=== PATIENT | male | born 1980 | race Two or more races ===

== ENCOUNTER → 2016-11-06 | Outpatient (REF) | payer OTHER ==
[~2016-11-06] MED LIST: NORC5TAB PO
[2016-11-06 13:10] LABS: CARCINOEMBRYONIC ANTIGEN 1.4 NG/ML (<2.5)
== END ==
LOC: M LAB REF 12:01
PROVIDERS: ATTEND Internal Medicine Medical Oncology
DX: C62.90 Malignant neoplasm of unspecified testis, unspecified whether descended or undescended (principal)

== ENCOUNTER → 2016-12-21 | Outpatient (REF) | payer OTHER | LOC: M LAB REF 12:23 | PROVIDERS: ATTEND Internal Medicine Medical Oncology | DX: C62.91 Malignant neoplasm of right testis, unspecified whether descended or undescended (principal); Z08 Encounter for follow-up examination after completed treatment for malignant neoplasm ==

== ENCOUNTER 2017-02-16 06:13 | Emergency (ER) | payer OTHER ==
[~2017-02-16] VITALS: Ht 177.8 cm; Wt 104.3 kg
[~2017-02-16 06:13] MED LIST changes: +NORC1TAB4 PO; -NORC5TAB PO
[2017-02-16 06:18] VITALS: BP 123/74
[2017-02-16] MEDS ORDERED: MAGICMW MT (06:53)
[2017-02-16] MEDS ORDERED: TESS100C PO (06:53)
== END 2017-02-16 07:04 | disposition home or self-care (01) ==
LOC: M ED 07:03
DX: R05 Cough (principal); J02.9 Acute pharyngitis, unspecified

== ENCOUNTER 2017-03-01 22:05 | Emergency (ER) | payer OTHER ==
[~2017-03-01] VITALS: Ht 177.8 cm; Wt 104.3 kg
[~2017-03-01 22:05] MED LIST changes: -GASTROGRAFIN SOLUTION 30ML (Q9963) As Ordered ONE; -IBUP-1114 PO; -ISOVUE-370 76% 100ML VIAL (Q9967) As Ordered ONE
[2017-03-01 22:10] VITALS: BP 139/81
[2017-03-01] MEDS ORDERED: IBUP-1114 PO (22:15)
[2017-03-01] MEDS ORDERED: KETOROLAC 60 MG/2 ML VIAL (J1885) IM ONE (22:30)
[2017-03-01] MEDS ORDERED: NORCO 5/325MG TABLET (BULK FOR ED) PO ONE (23:00)
== END 2017-03-01 23:24 | disposition home or self-care (01) ==
LOC: M ED 22:43
DX: M79.604 Pain in right leg (principal); M79.605 Pain in left leg

== ENCOUNTER → 2017-03-01 | Outpatient (CLI) | payer OTHER ==
[~2017-03-01] MED LIST changes: +GASTROGRAFIN SOLUTION 30ML (Q9963) As Ordered ONE; +IBUP-1114 PO; +ISOVUE-370 76% 100ML VIAL (Q9967) As Ordered ONE; +MAGICMW MT; +TESS100C PO
--- NOTE | 2017-03-01 18:40 | REP ---
Clinical: Testicular cancer . Comparison: 02/05/2016 . Technique: PA and lateral. Findings: The mediastinum and cardiac silhouette are normal. Xddkwu-U-Myrx with tip in the SVC. The lung streeter are clear and without acute consolidation, effusion, or pneumothorax. The skeletal structures are intact and normal. Impression: 1. No acute cardiopulmonary process. Signed by August Nice MD 03/01/2017 06:31 P
--- NOTE | 2017-03-02 09:00 | REP ---
Clinical: Testicular cancer for restaging. Technique: Axial contrast enhanced images from the lung bases to the pubic symphysis using oral and 100 ml Isovue 370 intravenous contrast material with precontrast and delayed images of the abdomen as well as coronal and sagittal re-formations. Comparison: 08/10/2016, 06/25/2016. Findings: Lung bases are clear. Visualized heart and pericardium normal. Liver, spleen, pancreas, gallbladder, bilateral adrenal glands and kidneys are normal. The enteric system including stomach, small and large bowel is unremarkable and without obstruction or acute inflammatory process. Normal terminal ileum and appendix identified in the right lower quadrant. Scattered sigmoid diverticula noted without acute diverticulitis. Pelvis demonstrates partially collapsed normal bladder and age appropriate prostate/seminal vesicles. No ascites. No adenopathy. No free air. Abdominal aorta and vasculature normal. Musculoskeletal structures are intact without focal osseous abnormality. Impression: 1. No evidence for ascites, adenopathy, mass, recurrence or metastatic disease. 2. Sigmoid diverticula without acute diverticulitis. Signed by August Nice MD 03/02/2017 08:52 A
== END ==
LOC: M RAD 17:17
PROVIDERS: ATTEND Internal Medicine Medical Oncology
DX: C62.92 Malignant neoplasm of left testis, unspecified whether descended or undescended (principal)

== ENCOUNTER → 2017-03-13 | Outpatient (REF) | payer OTHER ==
[~2017-03-13] MED LIST changes: +IBUP-1114 PO
[2017-03-15 10:44] LABS: CARCINOEMBRYONIC ANTIGEN < 0.5 NG/ML (<2.5)
== END ==
LOC: M LAB REF 13:16
PROVIDERS: ATTEND Internal Medicine Medical Oncology
DX: C62.91 Malignant neoplasm of right testis, unspecified whether descended or undescended (principal)

== ENCOUNTER → 2017-04-01 | Outpatient (CLI) | payer OTHER ==
[~2017-04-01] MED LIST changes: +LIDOCAINE 2% MDV 20 ML VIAL As Ordered ONE; +LIDOCAINE W/EPINEPHRINE 1% 20ML VIAL As Ordered ONE
--- NOTE | 2017-04-01 17:51 | REPKIM ---
CLINICAL HISTORY: Patient has a right IJ chest phhkaf-a-mogh. The referring service has requested to remove the chest xdvliw-t-buaj because it is no longer needed. PROCEDURE PERFORMED: Chest Qkbkiu-A-Ucyg Removal INTERVENTIONALIST: Reyes Villar MD MEDICATIONS: Local Lidocaine EBL: less than 5 mL CONSENT: The risks, benefits and alternatives to the procedure were explained to the patient and informed written consent was obtained. PROCEDURE/FINDINGS: The patient was brought to the interventional radiology suite and was positioned supine on the table. Time out procedure was performed. Fluoroscopy of the chest showed the right chest ocoegk-a-euom is intact with its tip in a satisfactory course and position. The right upper chest was prepped and draped in the usual sterile fashion. Local anesthesia was administered to the overlying skin and surrounding deep tissue around the existing port. Then a skin incision was made. The port was bluntly dissected free from the surrounding soft tissues. Then the port and its associated catheter were removed in their entirety. The deep tissue was closed with interrupted 2-0 Vicryl suture. The skin incision closed with running subcutaneous 4-0 Vicryl suture and steristrips. The patient tolerated the procedure well with no immediate complications. This procedure was performed using fluoroscopy. Dr. Villar was present. IMPRESSION: Successful chest hxbqhr-k-mrnr removal as discussed above. cc: MD MICHI Leon
== END | disposition home or self-care (01) ==
LOC: M IRPRO 07:34
PROVIDERS: ATTEND Internal Medicine Medical Oncology
DX: Z45.2 Encounter for adjustment and management of vascular access device (principal); C62.90 Malignant neoplasm of unspecified testis, unspecified whether descended or undescended

== ENCOUNTER → 2017-04-12 | Outpatient (REF) | payer OTHER ==
[~2017-04-12] MED LIST changes: -LIDOCAINE 2% MDV 20 ML VIAL As Ordered ONE; -LIDOCAINE W/EPINEPHRINE 1% 20ML VIAL As Ordered ONE
[2017-04-12 13:46] LABS: CARCINOEMBRYONIC ANTIGEN 0.6 NG/ML (<2.5)
== END ==
LOC: M ONCM 12:23
PROVIDERS: ATTEND Internal Medicine Medical Oncology
DX: C62.90 Malignant neoplasm of unspecified testis, unspecified whether descended or undescended (principal)

== ENCOUNTER → 2017-05-10 | Outpatient (REF) | payer OTHER ==
[2017-05-10 14:06] LABS: CARCINOEMBRYONIC ANTIGEN < 0.5 NG/ML (<2.5)
== END ==
LOC: M LAB REF 13:23
PROVIDERS: ATTEND Internal Medicine Medical Oncology
DX: C62.90 Malignant neoplasm of unspecified testis, unspecified whether descended or undescended (principal)

== ENCOUNTER → 2017-08-16 | Outpatient (CLI) | payer OTHER ==
[~2017-08-16] MED LIST changes: +GASTROGRAFIN SOLUTION 30ML (Q9963) As Ordered ONE; +ISOVUE-300 61% 50ML VIAL (Q9967) As Ordered ONE; +ISOVUE-370 76% 100ML VIAL (Q9967) As Ordered ONE
--- NOTE | 2017-08-16 16:07 | REP ---
CHEST X-RAY PA AND LATERAL: 08/16/2017. Comparison: 03/01/2017, 02/05/2016, CT chest 02/22/2016. Clinical history: Follow-up testicular carcinoma, surveillance. Findings: Two views of the chest were provided. The lung streeter are well inflated. There is been interval removal of the indwelling jugular port catheter since the February 2017 exam. There is no pleural effusion, lateral pleural thickening apical scarring or pneumothorax. No infiltrate, mass, nodule or atelectasis. Heart, mediastinal and hilar contours are normal. The aorta and airway were intact. Bony thorax shows no focal lesion. No free air under the diaphragm. Impression: 1. No acute cardiopulmonary change. Interval removal of the right jugular indwelling catheter. No visible plain radiographic evidence of metastatic disease in the chest. Signed by Lionel Lopez MD 08/16/2017 04:00 P
--- NOTE | 2017-08-16 18:06 | REP ---
CT ABDOMEN PELVIS WITHOUT AND WITH CONTRAST: 08/16/2017. Comparison: 03/01/2017, 08/10/2016. Clinical history: Follow-up testicular cancer for restaging. Technique: Oral Gastrografin mixture 10 ml in 290 ml flavored water for two doses per our bowel contrast protocol and scanning through the abdomen and pelvis. Coronal and sagittal reconstructions were provided. Precontrast images were also obtained. Findings: CT abdomen: The lung bases are clear. The heart is not enlarged. There is no pericardial thickening or effusion and no hiatal hernia. No hepatosplenomegaly, focal hepatic or splenic lesion, intrahepatic biliary dilatation nor perihepatic ascites. Gallbladder, adrenal glands and pancreas are all unremarkable. The aorta is without aneurysm. There is no periaortic, other retroperitoneal or intra-abdominal pathologic sized lymphadenopathy. The largest node is about 7.5 mm on image 80 and this is unchanged compared to previous studies. Small bowel loops are contrast-filled. Oral contrast reaches the right colon and transverse colon. No sign of colitis, diverticulitis, stricture or mass. No ascites or free air. Bone windows show lumbar and lower thoracic spine without compression deformity of destructive lesion. Posterior elements were all intact. Visualized ribs intact. CT pelvis: Sacrum, SI joints, hips, pelvis and pubic symphysis and pubic rami were all grossly intact. No destructive lesions. Kidneys show function without obstruction, stone, mass, cyst or perinephric fluid. There is a tiny calcification within pyramids without collecting system stone on that left side is about 2 mm. No hydronephrosis, hydroureter or ureteral stone on either side. No bladder stone or mass. No wall thickening of the bladder. Prostate unremarkable. The distal left colon shows a few scattered diverticula as does the proximal sigmoid but no colitis or diverticulitis. I see no evidence of ventral or inguinal hernia nor pathologic sized inguinal adenopathy. Impression: 1. There are stable small retroperitoneal nodes which I would regard as normal. No progression in size or number of nodes. 2. No calcified gallstone. The liver, spleen, adrenal glands, pancreas and kidneys are intact. 3. Small bowel loops and colon intact. The bones without acute finding. No CT evidence for metastatic disease at this time. Signed by Lionel Lopez MD 08/19/2017 12:47 P
== END ==
LOC: M RAD 15:04
PROVIDERS: ATTEND Internal Medicine Medical Oncology
DX: C62.90 Malignant neoplasm of unspecified testis, unspecified whether descended or undescended (principal)
CPT/HCPCS: 71020; 74178; Q9963; Q9967

== ENCOUNTER → 2018-01-28 | Outpatient (REF) | payer OTHER ==
[2018-01-28 14:32] LABS: ALPHA FETOPROTEIN TUMOR QUANT 1.9 NG/ML (<8.1)
[2018-01-29 08:06] LABS: HCG SERUM TUMOR MARKER QUANT < 1 mIU/mL (0-3)
== END ==
LOC: M LAB REF 13:39
DX: C62.91 Malignant neoplasm of right testis, unspecified whether descended or undescended (principal)

== ENCOUNTER → 2018-01-30 | Outpatient (CLI) | payer OTHER | LOC: M RAD 08:48 | DX: C62.90 Malignant neoplasm of unspecified testis, unspecified whether descended or undescended (principal) | CPT/HCPCS: 71046 ==

== ENCOUNTER → 2018-04-22 | Outpatient (REF) | payer OTHER ==
[2018-04-24 00:20] LABS: HCG SERUM TUMOR MARKER QUANT < 1 mIU/mL (0-3)
[2018-04-25 10:05] LABS: ALPHA FETOPROTEIN TUMOR QUANT < 1.3 NG/ML (<8.1)
== END ==
LOC: M LAB REF 13:35
DX: C62.91 Malignant neoplasm of right testis, unspecified whether descended or undescended (principal)

== ENCOUNTER 2018-05-21 13:17 | Emergency (ER) | payer SELFPAY, OTHER | END 2018-05-21 15:23 | disposition left against medical advice (07) | LOC: M ED 13:17 | DX: R05 Cough (principal); I45.19 Other right bundle-branch block; Z53.21 Procedure and treatment not carried out due to patient leaving prior to being seen by health care provider ==

== ENCOUNTER 2018-06-01 18:04 | Emergency (ER) | payer OTHER ==
[2018-06-01] MEDS: KETOROLAC 30 MG/ML VIAL (J1885) IV (18:30)
[2018-06-01] MEDS: ONDANSETRON 4MG/2ML VIAL (J2405) IV (18:30)
[2018-06-01] MEDS: NS 1,000 ML IV (18:30)
[2018-06-01 18:33] LABS: BASO % 0.4 % (0.0-1.0); EOS # 0.3 10^3/uL (0.0-0.50); EOS % 2.7 % (0.0-3.0); HEMATOCRIT 46.8 % (42.0-52.0); IMMATURE GRANULOCYTE % 0.4 % (0-3.0); LYMPH # 2.2 10^3/uL (1.5-4.5); LYMPH % 21.4 % (24.0-44.0); MEAN CORPUSCULAR HEMOGLOBIN 27.2 pg (27.0-33.0); MEAN CORPUSCULAR HGB CONC 34.2 g/dl (32.0-36.5); MEAN CORPUSCULAR VOLUME 79.6 fl (80.0-96.0); MONO # 0.7 10^3/uL (0.0-0.8); MONO % 7.1 % (0.0-5.0); NEUTROPHILS # 7.1 10^3/uL (1.8-7.7); PLATELET COUNT, AUTOMATED 289 10^3/uL (150-450); RED BLOOD COUNT 5.88 10^6/uL (4.30-6.10); RED CELL DISTRIBUTION WIDTH 13.7 % (11.5-14.5); WHITE BLOOD COUNT 10.5 10^3/uL (4.0-10.0)
[2018-06-01 18:44] LABS: KETONE, URINE AUTO RFX NEGATIVE (NEGATIVE); LEUKOCYTE ESTERASE UR AUTO RFX NEGATIVE (NEGATIVE); MUCUS, URINE RFX SMALL (NEGATIVE); NITRITE, URINE AUTO RFX NEGATIVE (NEGATIVE); RBC, URINE AUTO RFX 1 /HPF (0-3); SPECIFIC GRAVITY UR AUTO RFX 1.025 (1.002-1.035); SQUAM EPITHELIAL CELL UR AURFX 0 /HPF (0-6); WBC, URINE AUTO RFX 1 /HPF (0-3)
[2018-06-01 18:58] LABS: ALBUMIN/GLOBULIN RATIO 1.21 (1.00-1.93); ALKALINE PHOSPHATASE 124 U/L (45-117); ALT/SGPT 41 U/L (12-78); ANION GAP 10 MEQ/L (8-16); AST/SGOT 27 U/L (7-37); BILIRUBIN,DIRECT 0.1 MG/DL (0.0-0.2); BILIRUBIN,TOTAL 0.4 MG/DL (0.2-1.0); BLOOD UREA NITROGEN 12 MG/DL (7-18); CALCIUM LEVEL 9.2 MG/DL (8.5-10.1); CARBON DIOXIDE LEVEL 27 MEQ/L (21-32); CHLORIDE LEVEL 107 MEQ/L (98-107); CREATININE FOR GFR 1.23 MG/DL (0.70-1.30); GLOMERULAR FILTRATION RATE > 60.0 (>60); GLUCOSE, FASTING 114 MG/DL (70-100); LIPASE 153 U/L (73-393); POTASSIUM SERUM 4.1 MEQ/L (3.5-5.1); SODIUM LEVEL 144 MEQ/L (136-145); TOTAL PROTEIN 7.3 GM/DL (6.4-8.2)
[2018-06-01] MEDS: MORPHINE 4 MG/ML 1ML VIAL/SYRINGE (J2270) IV (19:38)
[2018-06-01] MEDS: OXYCODONE/APAP 5MG/325MG(BULK FOR ED) 1 TABLET PO (20:25)
[2018-06-01] MEDS: TAMSULOSIN 0.4 MG CAP PO (20:25)
== END 2018-06-01 20:37 | disposition home or self-care (01) ==
LOC: M ED 18:04
DX: N20.1 Calculus of ureter (principal); F17.210 Nicotine dependence, cigarettes, uncomplicated; Z98.890 Other specified postprocedural states; Z88.0 Allergy status to penicillin
CPT/HCPCS: J2270

== ENCOUNTER → 2018-07-28 | Outpatient (CLI) | payer OTHER ==
[~2018-07-28] MED LIST changes: -GASTROGRAFIN SOLUTION 30ML (Q9963) As Ordered ONE; -IBUP-1114 PO; -ISOVUE-300 61% 50ML VIAL (Q9967) As Ordered ONE; +ISOVUE-370 76% 100ML VIAL (Q9967) As Ordered; -ISOVUE-370 76% 100ML VIAL (Q9967) As Ordered ONE; -MAGICMW MT; -NORC1TAB4 PO; +READI-CAT 2 As Ordered; -TESS100C PO
== END ==
LOC: M RAD 16:00
DX: C62.90 Malignant neoplasm of unspecified testis, unspecified whether descended or undescended (principal)
CPT/HCPCS: Q9967

== ENCOUNTER → 2018-07-30 | Outpatient (REF) | payer OTHER ==
[2018-07-30 15:13] LABS: SEMEN APPEARANCE OPAQUE (OPAQUE); SEMEN VISCOSITY LIQUID (LIQUID); SEMEN VOLUME 0.8 ml (4.0-5.0)
[2018-07-30 15:14] LABS: IMMMOTILE SPERM CENTRIFUGED ABSENT (ABSENT); IMMOTILE SPERM ABSENT (ABSENT); MOTILE SPERM ABSENT (ABSENT); MOTILE SPERM CENTRIFUGED ABSENT (ABSENT); WBC CONCENTRATION <=1 M/ml (<=1 M/ml)
== END ==
LOC: M SMT 14:39
DX: Z98.52 Vasectomy status (principal)
CPT/HCPCS: 89321

== ENCOUNTER 2018-10-05 09:17 | Emergency (ER) | payer OTHER ==
[~2018-10-05] VITALS: Ht 177.8 cm; Wt 100.0 kg
[~2018-10-05 09:17] MED LIST changes: +FLOM0.4C39 PO; +IBUP-1114 PO; -ISOVUE-370 76% 100ML VIAL (Q9967) As Ordered; +MAGICMW MT; +NORC1TAB4 PO; +PERC5TAB12 PO; -READI-CAT 2 As Ordered; +TESS100C PO; +ZITHTAB PO; +ZOFR4TAB14 PO
[2018-10-05 09:18] VITALS: BP 135/73
[2018-10-05] MEDS ORDERED: DOXY100C37 PO (09:47)
[2018-10-05] MEDS ORDERED: MUCI600T37 PO (09:47)
[2018-10-05] MEDS ORDERED: PROAAER10 INH (09:47)
[2018-10-05] MEDS ORDERED: CLAR1TAB2 PO (09:47)
== END 2018-10-05 10:02 | disposition home or self-care (01) ==
LOC: M ED 09:17
DX: J01.90 Acute sinusitis, unspecified (principal); R05 Cough; F17.200 Nicotine dependence, unspecified, uncomplicated; Z88.0 Allergy status to penicillin; Z85.47 Personal history of malignant neoplasm of testis; Z87.442 Personal history of urinary calculi; M54.9 Dorsalgia, unspecified

== ENCOUNTER → 2019-12-23 | Outpatient (REF) | payer OTHER ==
[~2019-12-23] MED LIST changes: +CLAR1TAB2 PO; +DOXY100C37 PO; +MUCI600T37 PO; -NORC1TAB4 PO; +NORC1TAB7 PO; +PROAAER10 INH
[2019-12-23 22:16] LABS: INFLUENZA A AMPLIFICATION NEGATIVE (NEGATIVE); INFLUENZA B AMPLIFICATION NEGATIVE (NEGATIVE)
== END ==
LOC: M LAB REF 21:10
PROVIDERS: ATTEND Physician Assistant
DX: J11.89 Influenza due to unidentified influenza virus with other manifestations (principal)

== ENCOUNTER 2020-01-19 05:44 | Emergency (ER) | payer OTHER ==
[~2020-01-19] VITALS: Ht 177.8 cm; Wt 100.0 kg
[2020-01-19] MEDS ORDERED: KETOROLAC 30 MG/ML VIAL (J1885) As Ordered ONE (05:59)
[2020-01-19] MEDS ORDERED: ONDANSETRON 4MG/2ML VIAL (J2405) As Ordered ONE (06:00)
[2020-01-19] MEDS ORDERED: KETOROLAC 30 MG/ML VIAL (J1885) IV ONE (06:15)
[2020-01-19] MEDS ORDERED: ONDANSETRON 4MG/2ML VIAL (J2405) IV ONE (06:15)
[2020-01-19] MEDS ORDERED: NS 1,000 ML IV ONE (06:15)
[2020-01-19 06:28] LABS: BASO # 0.1 10^3/uL (0.0-0.2); BASO % 0.6 % (0.0-1.0); EOS # 0.4 10^3/uL (0.0-0.5); EOS % 4.2 % (0.0-3.0); HEMATOCRIT 51.7 % (42.0-52.0); HEMOGLOBIN 17.6 g/dl (13.5-17.5); LYMPH # 2.6 10^3/uL (1.5-5.0); LYMPH % 31.1 % (24.0-44.0); MEAN CORPUSCULAR HEMOGLOBIN 27.8 pg (27.0-33.0); MEAN CORPUSCULAR VOLUME 81.5 fl (80.0-96.0); MONO # 0.8 10^3/uL (0.0-0.8); MONO % 9.1 % (0.0-5.0); NEUTROPHILS # 4.6 10^3/uL (1.5-8.5); NEUTROPHILS % 54.8 % (36.0-66.0); PLATELET COUNT, AUTOMATED 274 10^3/uL (150-450); RED BLOOD COUNT 6.34 10^6/uL (4.30-6.10); WHITE BLOOD COUNT 8.4 10^3/uL (4.0-10.0)
--- NOTE | 2020-01-19 06:34 | REPVR ---
PROCEDURE INFORMATION: Exam: CT Abdomen And Pelvis Without Contrast Exam date and time: 01/19/2020 6:05 AM Age: 39 years old Clinical indication: Abdominal pain; Flank; Left; Additional info: L flank pain, HX of kidney stones TECHNIQUE: Imaging protocol: Computed tomography of the abdomen and pelvis without contrast. Radiation optimization: All CT scans at this facility use at least one of these dose optimization techniques: automated exposure control; mA and/or kV adjustment per patient size (includes targeted exams where dose is matched to clinical indication); or iterative reconstruction. COMPARISON: CT ABD PELVIS W/O CONTRAST 06/01/2018 6:28 PM FINDINGS: Liver: Normal. No mass. Gallbladder and bile ducts: Normal. No calcified stones. No ductal dilation. Pancreas: Normal. No ductal dilation. Spleen: Normal. No splenomegaly. Adrenals: Normal. No mass. Kidneys and ureters: There is a mild degree of left-sided hydronephrosis and hydroureter. This is secondary to a focal 2 mm left UVJ stone. Stomach and bowel: There is diverticulosis of the descending and sigmoid segments of the colon. Appendix: No evidence of appendicitis. Intraperitoneal space: Unremarkable. No free air. No significant fluid collection. Vasculature: Unremarkable. No abdominal aortic aneurysm. Lymph nodes: Unremarkable. No enlarged lymph nodes. Bladder: The urinary bladder is under filled and not well evaluated. Reproductive: Unremarkable as visualized. Bones/joints: Unremarkable. No acute fracture. Soft tissues: There is a fat containing left inguinal hernia. IMPRESSION: 2 mm mildly obstructing left UVJ stone. Electronically signed by: Uma Watts On 01/19/2020 06:34:30 AM
[2020-01-19 06:59] LABS: ALT/SGPT 55 U/L (12-78); BILIRUBIN,DIRECT < 0.1 MG/DL (0.0-0.2); BILIRUBIN,TOTAL 0.5 MG/DL (0.2-1.0); BLOOD UREA NITROGEN 16 MG/DL (7-18); CALCIUM LEVEL 9.3 MG/DL (8.5-10.1); CARBON DIOXIDE LEVEL 25 MEQ/L (21-32); CHLORIDE LEVEL 107 MEQ/L (98-107); CREATININE FOR GFR 0.98 MG/DL (0.70-1.30); GLOMERULAR FILTRATION RATE > 60.0 (>60); GLUCOSE, FASTING 99 MG/DL (70-100); LIPASE 110 U/L (73-393); POTASSIUM SERUM 5.3 MEQ/L (3.5-5.1); SODIUM LEVEL 138 MEQ/L (136-145); TOTAL PROTEIN 7.7 GM/DL (6.4-8.2)
[2020-01-19] MEDS ORDERED: FLOM0.4C39 PO (07:04)
[2020-01-19] MEDS ORDERED: KETO10TAB PO (07:04)
[2020-01-19] MEDS ORDERED: MORPHINE 4 MG/ML 1ML VIAL/SYRINGE (J2270) IV ONE (07:15)
[2020-01-19] MEDS ORDERED: NORC1TAB7 PO (07:29)
[2020-01-19 07:35] VITALS: BP 14/89
== END 2020-01-19 07:38 | disposition home or self-care (01) ==
LOC: M ED 05:44
DX: N20.0 Calculus of kidney (principal); Z88.0 Allergy status to penicillin; F17.210 Nicotine dependence, cigarettes, uncomplicated
CPT/HCPCS: 74176; 80047; 80053; 81001; 83690; 85025; 96361; 96374; 96375; 99284; J1885; J2270; J2405

== ENCOUNTER 2021-08-06 09:58 | Emergency (ER) | payer OTHER ==
[~2021-08-06] VITALS: Ht 177.8 cm; Wt 99.6 kg
[2021-08-06 09:58] VITALS: BP 163/88
[~2021-08-06 09:58] MED LIST changes: +DOXY-443 PO; -DOXY100C37 PO; +KETO10TAB PO
--- OUTSIDE RECORDS SUMMARY | 2021-08-06 10:04 | CCD ---
Author Author [facility] Organization [facility] Address Unknown Phone Unavailable Support Name Relationship Address Phone UE Next Of Kin Unknown Unavailable WATNGOLFCL [facility] [place] [address] RAJWINDER FAYE Next Of Kin [address] [place] [address] NO, CONTACT Next Of Kin Unknown Unavailable [employer] Next Of Kin [address] [place] [address] RUPALI HIDALGO Next Of Kin [address] [place] [address] Rajwinder Faye [facility] [address] [place] [address] Unavailable Re-disclosure Warning The records that you are about to access may contain information from federally-assisted alcohol or drug abuse programs. If such information is present, then the following federally mandated warning applies: This information has been disclosed to you from records protected by federal confidentiality rules (42 CFR part 2). The federal rules prohibit you from making any further disclosure of this information unless further disclosure is expressly permitted by the written consent of the person to whom it pertains or as otherwise permitted by 42 CFR part 2. A general authorization for the release of medical or other information is NOT sufficient for this purpose. The Federal rules restrict any use of the information to criminally investigate or prosecute any alcohol or drug abuse patient.The records that you are about to access may contain highly sensitive health information, the redisclosure of which is protected by Article 27-F of the [facility] Public Health law. If you continue you may have access to information: Regarding HIV / AIDS; Provided by facilities licensed or operated by the [facility] Office of Mental Health; or Provided by the [facility] Office for People With Developmental Disabilities. If such information is present, then the following [facility] mandated warning applies: This information has been disclosed to you from confidential records which are protected by state law. State law prohibits you from making any further disclosure of this information without the specific written consent of the person to whom it pertains, or as otherwise permitted by law. Any unauthorized further disclosure in violation of state law may result in a fine or mcc sentence or both. A general authorization for the release of medical or other information is NOT sufficient authorization for further disc losure. Immunizations Vaccine Date Status Description Data Source(s) COVID-19 VACCINE Moderna 07/10/2021 12:00:00 AM EDT completed [facility] Vaccine Series Complete: NOThis Data was Submitted to [facility] Via [facility]. Medications No Information Insurance Providers Payer name Policy type / Coverage type Policy ID Covered alliance party ID Covered alliance party's relationship to castrejon Policy Castrejon Plan Information [facility] COMMUNITY PLAN MCDO [id number] SP [id number] [facility] COMMUNITY PLAN MCDO [id number] SP [id number] [facility] COMMUNITY PLAN MCDO [id number] SP [id number] [facility] [id number] Self [id number] [facility] [id number] Self [id number] [facility] COMMUNITY PLAN MCDHMO [id number] SP [id number] [facility] COMMUNITY PLAN MCDO [id number] SP [id number] [facility] COMMUNITY PLAN MCDO [id number] SP [id number] SELF PAY ONLY [id number] SP [id number] [facility] COMMUNITY PLAN MCDO [id number] SP [id number] [facility] COMMUNITY PLAN MCDO [id number] SP [id number] ANSI-Medicaid [id number] [facility]) O [id number] S [id number] MEDICAID [id number] SP [id number] SELF PAY UNAVAILABLE SP UNAVAILA BLE UNHC COMMUNITY PLAN MCDHMO [id number] SP [id number] [facility]) O [id number] S [id number] [facility] COMMUNITY PLAN MCDO [id number] SP [id number] [facility] COMMUNITY PLAN MCDO [id number] SP [id number] ANSI-Medicaid [id number] [facility] [id number] ANS-Medicaid [id number] [facility]-Medicaid [id number] Problems, Conditions, and Diagnoses No Information Surgeries/Procedures No Information Results ID Date Data Source [id number] 05/15/2021 12:00:00 AM EDT [facility] Name Value Range Interpretation Code Description Data Svetlana rce(s) Supporting Document(s) SARS-CoV2 Rapid [facility]igen [facility] and reported by [facility]. Procedure Social History No Information
--- OUTSIDE RECORDS SUMMARY | 2021-08-06 11:07 | CCD ---
Author Author [facility] Organization [facility] Address Unknown Phone Unavailable Support Name Relationship Address Phone UE Next Of Kin Unknown Unavailable WATNGOLFCL [facility] [place] [address] RAJWINDER FAYE Next Of Kin [address] [place] [address] NO, CONTACT Next Of Kin Unknown Unavailable [employer] Next Of Kin [address] [place] [address] RUPALI HIDALGO Next Of Kin [address] [place] [address] Rajwinder Faye [facility] [address] [place] [address] Unavailable Re-disclosure Warning The records that you [...] is protected by Article 27-F of the [facility] Public Health law. If you continue you may have access to information: Regarding HIV / AIDS; Provided by facilities licensed or operated by the [facility] Office of Mental Health; or Provided by the [facility] Office for People With Developmental Disabilities. If such information is present, then the following [facility] mandated warning applies: This information has been [...] law may result in a fine or mcfp sentence or both. A general authorization for the release of medical or other information is NOT sufficient authorization for further disc losure. Immunizations Vaccine Date Status Description Data Source(s) COVID-19 VACCINE Moderna 07/10/2021 12:00:00 AM EDT completed [facility] Vaccine Series Complete: NOThis Data was Submitted to [facility] Via [facility]ally. Medications No Information Insurance Providers Payer name Policy type / Coverage type Policy ID Covered green party ID Covered green party's relationship to castrejon Policy Castrejon Plan Information [facility] COMMUNITY PLAN MCDO [id number] SP [id number] [facility] COMMUNITY PLAN MCDO [id number] SP [id number] [facility] COMMUNITY PLAN MCDO [id number] SP [id number] [facility] [id number] Self [id number] [facility] [id number] Self [id number] FOR[facility] COMMUNITY PLAN MCDHMO [id number] SP [id number] [facility], [facility] COMMUNITY PLAN MCDO [id number] SP [id number] [facility] COMMUNITY PLAN MCDO [id number] SP [id number] SELF PAY ONLY [id number] SP [id number] [facility] COMMUNITY PLAN MCDO [id number] SP [id number] [facility] COMMUNITY PLAN MCDO [id number] SP [id number] ANSI-Medicaid [id number] [facility]) O [id number] S [id number] MEDICAID [id number] SP [id number] SELF PAY UNAVAILABLE SP UNAVAILA BLE UNHC COMMUNITY PLAN MCDHMO [id number] SP [id number] [facility]) O [id number] S [id number] [facility], [facility] COMMUNITY PLAN MCDO [id number] SP [id number] [facility], [facility] COMMUNITY PLAN MCDO [id number] SP [id number] ANSI-Medicaid [id number] [facility] [id number] ANS-Medicaid [id number] [facility]-Medicaid [id number] Problems, Conditions, and Diagnoses No Information Surgeries/Procedures No Information Results ID Date Data Source [id number] 05/15/2021 12:00:00 AM EDT [facility] Name Value Range Interpretation Code Description Data Svetlana rce(s) Supporting Document(s) SARS-CoV2 Rapid [facility]igen [facility] and reported by [facility]. Procedure Social History No Information
== END 2021-08-06 10:53 | disposition left against medical advice (07) ==
LOC: M ED 09:58
DX: Z53.29 Procedure and treatment not carried out because of patient's decision for other reasons (principal)

== ENCOUNTER 2022-09-03 16:25 | Emergency (ER) | payer OTHER ==
[~2022-09-03] VITALS: Ht 177.8 cm; Wt 99.5 kg
[2022-09-03 16:26] VITALS: BP 150/87
[2022-09-03] MEDS ORDERED: ACETAMINOPHEN TAB 650MG DOSE (2X325MG) PO ONE (17:00)
[2022-09-03 18:19] LABS: RSV AMPLIFICATION NEGATIVE (NEGATIVE)
== END 2022-09-03 22:29 | disposition left against medical advice (07) ==
LOC: M ED 16:25
DX: Z53.21 Procedure and treatment not carried out due to patient leaving prior to being seen by health care provider (principal)